=== PATIENT | female | born 1965 | race Caucasian/White ===

== ENCOUNTER → 2020-05-10 | Outpatient (CLI) | payer BC ==
[2020-05-14 16:38] LABS: Metanephrine, Free 30 pg/mL (< OR = 57); Normetanephrine, Free 61 pg/mL (< OR = 148); Total, Free (MN + NMN) 91 pg/mL (< OR = 205)
== END | disposition home or self-care (01) ==
LOC: LABWHC1 08:44
PROVIDERS: ATTEND Family Medicine
DX: I10 Essential (primary) hypertension (principal); R09.89 Other specified symptoms and signs involving the circulatory and respiratory systems
CPT/HCPCS: 36415; 82088; 83835; 84244; 84585

== ENCOUNTER → 2020-05-24 | Outpatient (CLI) | payer BC ==
[2020-05-24 15:15] LABS: HCT 42.6 % (37.2-46.3); MCHC 32.9 g/dL (32.0-37.0); MCV 91.4 fL (80.0-97.0); Platelet Count 230 X 10*3/uL (140-440); RBC 4.66 X 10*6/uL (4.10-5.20); RDW 12.2 % (11.5-14.5); WBC 4.75 X 10*3/uL (4.50-10.00)
[2020-05-24 18:26] LABS: African American GFR (CKD) 72.9 (60.0-200.0); Anion Gap 9.9 mmol/L (4.00-12.00); Calcium 9.3 mg/dL (8.7-10.3); Carbon Dioxide 27.1 mmol/L (21.6-31.8); Chol/HDL Ratio 3.59; Non-African American GFR(CKD) 62.9 (60.0-200.0); Potassium 4.7 mmol/L (3.5-5.5)
== END | disposition home or self-care (01) ==
LOC: LABWHC1 08:36
PROVIDERS: ATTEND Internal Medicine Cardiovascular Disease
DX: E78.2 Mixed hyperlipidemia (principal); I10 Essential (primary) hypertension; R94.31 Abnormal electrocardiogram [ECG] [EKG]
CPT/HCPCS: 36415; 80048; 80061; 84443; 84450; 84460; 85027

== ENCOUNTER → 2023-09-21 | Outpatient (CLI) | payer OTHER ==
--- NOTE | 2023-09-22 12:07 | MM ---
Reason for Exam: Screening (asymptomatic). Patient History: Menarche at age 11. First Full-Term at age 29. Late child-bearing (after 29). Postmenopausal. Risk Values: Janel 5 year model risk: 1.9%. NCI Lifetime model risk: 10.2%. Tissue Density: There are scattered areas of fibroglandular density. Findings: Analyzed By CAD. Right breast: There is no suspicious group of microcalcifications or new suspicious mass. Left breast: There is no suspicious group of microcalcifications or new suspicious mass. Overall Assessment: Negative, BI-RAD 1 Management: Screening Mammogram of both breasts in [address] [facility] will attempt to contact patient to return for supplemental views and ultrasound if indicated. Patient should continue monthly self-breast exams. A clinical breast exam by your physician is recommended on an annual basis. This exam should not preclude additional follow-up of suspicious palpable abnormalities. Note on Janel scores and lifetime risk: 1. A Janel score greater than 3% is considered moderate risk. If this is the case, consider specialist referral to assess eligibility for a risk reducing agent. 2. If overall lifetime risk for the development of breast cancer is 20% or higher, the patient may qualify for future screening with alternating mammogram and breast MRI. Electronically signed and approved by: Mina Rowe DO
== END | disposition home or self-care (01) ==
LOC: RADMAMWWP 07:27
PROVIDERS: ATTEND Family Medicine
DX: Z12.31 Encounter for screening mammogram for malignant neoplasm of breast (principal); Z78.0 Asymptomatic menopausal state
CPT/HCPCS: 77063; 77067